=== PATIENT | female | born 1935 | race Caucasian/White ===

== ENCOUNTER → 2017-09-17 | Outpatient (CLI) | payer BC | END | disposition home or self-care (01) | LOC: KCIC US 12:44 | DX: I65.23 Occlusion and stenosis of bilateral carotid arteries (principal) | CPT/HCPCS: 93880 ==

== ENCOUNTER → 2017-10-22 | Outpatient (CLI) | payer BC | END | disposition home or self-care (01) | LOC: KCIC US 10:14 | DX: N18.3 Chronic kidney disease, stage 3 (moderate) (principal); N13.39 Other hydronephrosis | CPT/HCPCS: 76770 ==

== ENCOUNTER → 2018-01-29 | Outpatient (CLI) | payer BC | END | disposition home or self-care (01) | LOC: KCIC 10:54 | DX: R06.02 Shortness of breath (principal); N18.3 Chronic kidney disease, stage 3 (moderate) | CPT/HCPCS: 71046 ==

== ENCOUNTER → 2018-03-17 | Outpatient (CLI) | payer BC ==
--- NOTE | 2018-03-17 12:53 | KCIC ---
EXAM: Dual energy x-ray absorptiometry (DEXA). HISTORY: Postmenopausal female presents for osteoporosis screening. COMPARISON: None. TECHNIQUE: Dual energy x-ray absorptiometry of the lumbar spine and left hip was performed. Calculation of bone mineral density based on standard deviations above or below the expected young adult normal value (T-score) was completed. FINDINGS: The average bone mineral density in the 1st through 4th lumbar vertebrae is 1.023 g/cmxcm, corresponding with a T-score of -0.2. The average total bone mineral density in the left hip is 0.752 g/cmxcm, corresponding with a T-score of -1.6. IMPRESSION: 1. Osteopenia measured at the left hip. 2. Normal bone mineral density measured at the lumbar spine. Note: Definitions established by the World Health Organization: 1. Normal: T-score is -1.0 or above. 2. Osteopenia: T-score is between -1.0 and -2.5 . 3. Osteoporosis: T-score is -2.5 or below. Electronically signed by: Christy Damon MD (03/17/2018 12:50 PM) [place] [id number]
== END | disposition home or self-care (01) ==
LOC: KCIC DEXA 09:52
PROVIDERS: ATTEND Family Medicine
DX: Z13.820 Encounter for screening for osteoporosis (principal); M85.88 Other specified disorders of bone density and structure, other site; N18.3 Chronic kidney disease, stage 3 (moderate); R29.890 Loss of height
CPT/HCPCS: 77080

== ENCOUNTER → 2018-03-17 | Outpatient (CLI) | payer BC ==
--- NOTE | 2018-03-17 15:53 | CARD ---
MR#: [id number] Date of Study: 03/17/2018 Ordering Physician: VISH NAPIER, Referring Physician: VISH NAPIER, Tech: Eve Leigh ISR[place] APPROVED REPORT EXAM: Two-dimensional and M-mode echocardiogram with Doppler and color Doppler. Other Information Quality : Good INDICATION Dyspnea 2D DIMENSIONS RVDd2.8 (2.9-3.5cm)Left Atrium(2D)3.7 (1.6-4.0cm) IVSd1.1 (0.7-1.1cm)Aortic Root(2D)3.4 (2.0-3.7cm) LVDd4.7 (3.9-5.9cm)LVOT Diameter2.2 (1.8-2.4cm) PWd1.1 (0.7-1.1cm)LVDs3.1 (2.5-4.0cm) FS (%) 30.0 %SV62.9 ml LVEF(%)60.0 (>50%) Aortic Valve AoV Peak Que.114.8cm/sAoV VTI24.5cm AO Peak GR.5.3mmHgLVOT VTI 21.57cm AO Mean GR.4mmHgAVA (VTI)3.45cm2 Mitral Valve MV E Mbchlusg08.0cm/sMV DECEL [id number] MV A Qxtozinh951.0cm/sE/A Ratio0.6 TDI Lateral E' P. V9.05cm/sMedial E' P. V6.11cm/s E/Lateral E'8.2E/Medial E'12.1 Tricuspid Valve TR P. Cefwiydz407wq/sRAP [id number] TR Peak Gr.53dvRkBRRH41uuTb Pulmonary Vein S1 Abzymjuf23.4cm/sS2 Tikhhvnj70.80cm/s D2 Bvoizuoo88.8cm/s LEFT VENTRICLE The left ventricle is normal size. There is normal left ventricular wall thickness. The left ventricu lar systolic function is normal and the ejection fraction is within normal range. The Ejection Fracti on is 55-60%. There is normal LV segmental wall motion. Transmitral Doppler flow pattern is Grade I-a bnormal relaxation pattern. RIGHT VENTRICLE The right ventricle is normal size. The right ventricular systolic function is normal. ATRIA The left atrium size is normal. The right atrium size is normal. The interatrial septum is intact wit h no evidence for an atrial septal defect or patent foramen ovale as noted on 2-D or Doppler imaging. AORTIC VALVE The aortic valve is calcified but opens well. Doppler and Color Flow revealed no significant aortic r egurgitation. There is no significant aortic valvular stenosis. MITRAL VALVE The mitral valve is calcified but opens well. There is no evidence of mitral valve prolapse. There is no mitral valve stenosis. Doppler and Color-flow revealed trace mitral regurgitation. TRICUSPID VALVE The tricuspid valve is normal in structure and function. Doppler and Color Flow revealed trace to mil d tricuspid regurgitation. The PA pressure was estimated at 28 mmHg. There is no tricuspid valve sten osis. PULMONIC VALVE The pulmonic valve is not well visualized. Doppler and Color Flow revealed no pulmonic valvular regur gitation. There is no pulmonic valvular stenosis. GREAT VESSELS The aortic root is normal in size. The ascending aorta is mildly dilated at 3.4 cm. The IVC is normal in size and collapses >50% with inspiration. PERICARDIAL EFFUSION There is no evidence of significant pericardial effusion. Critical Notification Critical Value: No <Conclusion> The left ventricular systolic function is normal and the ejection fraction is within normal range. Th e Ejection Fraction is 55-60%. There is normal LV segmental wall motion. Signed by : Patel Maldonado, Electronically Approved : 03/17/2018 15:52:35
== END | disposition home or self-care (01) ==
LOC: ECHO 13:56
PROVIDERS: ATTEND Internal Medicine Cardiovascular Disease
DX: I36.1 Nonrheumatic tricuspid (valve) insufficiency (principal); N18.3 Chronic kidney disease, stage 3 (moderate)
CPT/HCPCS: 93306

== ENCOUNTER 2018-03-31 12:17 | Inpatient (IN) | payer BC ==
[~2018-03-31] VITALS: Ht 162.6 cm; Wt 77.2 kg
--- NOTE | 2018-03-31 12:22 | PHYS DOC ---
Adult General HPI HPI Patient is a 82 year old female brought in by emesis with mechanical fall she tripped while taking the trash out no loss of consciousness she has chronic neck pain no change there. She's been feeling well recently no recent illnesses no chest pain no syncope. She has a laceration to her for a tetanus is up-to- date. Review of Systems Review of Systems Constitutional: Denies fever or chills [] Eyes: Denies change in visual acuity, redness, or eye pain [] HENT: Denies nasal congestion or sore throat [] Musculoskeletal: Neurologic: Deniesfocal weakness or sensory changes [] Endocrine: Denies polyuria or polydipsia [] All other systems were reviewed and found to be within normal limits, except as documented in this note. Current Medications Current Medications Current Medications Medications (Trade) Dose Ordered Sig/Jasbir Start Time Stop Time Status Last Admin Dose Admin Lidocaine/ Epinephrine (LIDOCAINE 1%-EPI 1:100,000 Multi-Dose) 20 ml 1X ONCE 03/31/18 12:30 03/31/18 12:59 DC 03/31/18 13:11 20 ML Allergies Allergies Allergies Coded Allergies Type Severity Reaction Last Updated Verified No Known Drug Allergies 03/31/18 No Physical Exam Physical Exam Constitutional: Well developed, well nourished, no acute distress, non-toxic appearance. [] HENT: Normocephalic,3-4 cm laceration to the right forehead , jagged no fb. bilateral external ears normal, oropharynx moist, no oral exudates, nose normal. [] Eyes: PERRLA, EOMI, conjunctiva normal, no discharge. [] Neck: Normal range of motion, ttp is noted diffuse no focality supple, no stridor. Pulmonary: Normal respiratory effort no increased work of breathing no obvious chest wall trauma Abdomen: Bowel sounds normal, soft, no tenderness, no masses, no pulsatile masses. [] Skin: Warm, dry, no erythema, no rash. [] Extremities: No tenderness, no cyanosis, no clubbing, ROM intact, no edema. [] Neurologic: Alert and oriented X 3, normal motor function, normal sensory function, no focal deficits noted. [] Psychologic: Affect normal, judgement normal, mood normal. [] Current Patient Data Vital Signs Vital Signs Date Time Temp Pulse Resp B/P (MAP) Pulse Ox O2 Delivery O2 Flow Rate FiO2 9/10/18 13:45 88 18 95 03/31/18 12:17 97.8 139/84 (102) Room Air 97.8 Lab Values Laboratory Tests Test 03/31/18 13:17 White Blood Count 6.2 x10^3/uL (4.0-11.0) Red Blood Count 4.81 x10^6/uL (3.50-5.40) Hemoglobin 14.6 g/dL (12.0-15.5) Hematocrit 42.6 % (36.0-47.0) Mean Corpuscular Volume 89 fL (79-100) Mean Corpuscular Hemoglobin 30 pg (25-35) Mean Corpuscular Hemoglobin Concent 34 g/dL (31-37) Red Cell Distribution Width 13.4 % (11.5-14.5) Platelet Count 204 x10^3/uL (140-400) Neutrophils (%) (Auto) 62 % (31-73) Lymphocytes (%) (Auto) 27 % (24-48) Monocytes (%) (Auto) 9 % (0-9) Eosinophils (%) (Auto) 1 % (0-3) Basophils (%) (Auto) 1 % (0-3) Neutrophils # (Auto) 3.8 x10^3uL (1.8-7.7) Lymphocytes # (Auto) 1.6 x10^3/uL (1.0-4.8) Monocytes # (Auto) 0.6 x10^3/uL (0.0-1.1) Eosinophils # (Auto) 0.0 x10^3/uL (0.0-0.7) Basophils # (Auto) 0.1 x10^3/uL (0.0-0.2) Prothrombin Time 13.1 SEC (11.7-14.0) Prothrombin Time INR 1.0 (0.8-1.1) Sodium Level 137 mmol/L (136-145) Potassium Level 4.0 mmol/L (3.5-5.1) Chloride Level 105 mmol/L (98-107) Carbon Dioxide Level 26 mmol/L (21-32) Anion Gap 6 (6-14) Blood Urea Nitrogen 20 mg/dL (7-20) Creatinine 1.2 mg/dL (0.6-1.0) H Estimated GFR (Cockcroft-Gault) 42.8 BUN/Creatinine Ratio 17 (6-20) Glucose Level 109 mg/dL (70-99) H Calcium Level 9.4 mg/dL (8.5-10.1) Total Bilirubin 0.5 mg/dL (0.2-1.0) Aspartate Amino Transferase (AST) 22 U/L (15-37) Alanine Aminotransferase (ALT) 30 U/L (14-59) Alkaline Phosphatase 70 U/L (46-116) Total Protein 7.1 g/dL (6.4-8.2) Albumin 3.5 g/dL (3.4-5.0) Albumin/Globulin Ratio 1.0 (1.0-1.7) Laboratory Tests 03/31/18 13:17 Laboratory Tests 03/31/18 13:17 EKG EKG [] Radiology/Procedures Radiology/Procedures [] Impressions: CT CERVICAL SPINE INDICATION: FALL LAC TO R FOREHEAD NO PREV COMPARISON: None Available. Exposure: One or more of the following individualized dose reduction techniques were utilized for this examination: 1. Automated exposure control 2. Adjustment of the mA and/or kV according to patient size 3. Use of iterative reconstruction technique Technique: 2.5 mm contiguous axial images were obtained from the skull base through the cervicothoracic junction in both bone and soft tissue algorithm. Additional sagittal and coronal reconstructions were also performed. FINDINGS: Vertebral body height and alignment are maintained. Cervical lordosis is preserved. The lateral masses of C1 are aligned upon C2. No fractures identified. The bony canal is patent throughout. Moderate intervertebral disc height loss identified throughout the cervical spine most at C5-C6 vertebral levels. Bilateral facets are well aligned. Moderate facet degenerative changes. The lateral masses of C1 are aligned with C2 vertebra. The C2 dens appears intact The paraspinous soft tissues are unremarkable. Lung apices are clear. IMPRESSION: 1. Mild subarachnoid bleed right temporal lobe. 2. No acute fracture of the cervical spine. Correlate clinically. 3. Moderate degenerative changes cervical spine. These results were called to Dr. Gandara and verified by read back at the time of dictation. Electronically signed by: Romario Olmos MD (03/31/2018 1:10 PM) [id number] Course & Med Decision Making Course & Med Decision Making Pertinent Labs and Imaging studies reviewed. (See chart for details) []Laceration repair: Verbal consent was obtained area was prepped and draped usual sterile fashion and irrigated profusely no foreign body was seen lidocaine with epi for anesthesia was closed with 6-0 nylon sutures with excellent skin aproximation patient tolerated well. 4 cm. NOTED SMALL SAH. PT GCS 15 ALERT NO ANTICOAGULATION D/W RAINER N'SURG RECOMMENDS THEY WILL LOOK AT SCANS BUT ADMIT FOR OBS AND REPEAT CT SCAN. Dragon Disclaimer Dragon Disclaimer This electronic medical record was generated, in whole or in part, using a voice recognition dictation system. Departure Departure Impression: Primary Impression: Forehead laceration Additional Impression: Subarachnoid hemorrhage Disposition: ADMITTED INPATIENT Admitting Physician: Tanner King Condition: STABLE Referrals: SHIRLEY ROSALES MD (PCP) Problem Qualifiers LUISANA HERNANDEZ MD Mar 31, 2018 12:22
[2018-03-31] MEDS ORDERED: LIDOCAINE 1%/EPI 1:100,000 20 ML VIAL. INJ ONE (12:30)
--- NOTE | 2018-03-31 13:13 | RAD ---
Examination: CT head and cervical spine without contrast HISTORY: History of laceration to the forehead, fall COMPARISON: None available CT HEAD INDICATION: FALL LAC TO R FOREHEAD NO PREV COMPARISON: None Available. TECHNIQUE: 5 mm contiguous axial images were obtained from the skull base to the vertex in both bone and soft tissue algorithm. FINDINGS: There is no evidence of midline shift. There is linear hyperdensity identified in the right temporal lobe best visualized on series 2 image #13 likely subarachnoid bleed in the right temporal lobe. Mild bilateral periventricular white matter hypodensities likely chronic small vessel ischemic disease The visualized lateral ventricles, third ventricle, fourth ventricle appropriate for age. The basal cisterns are uneffaced There is laceration identified in the right forehead region laterally. CT CERVICAL SPINE INDICATION: FALL LAC TO R FOREHEAD NO PREV COMPARISON: None Available. Exposure: One or more of the following individualized dose reduction techniques were utilized for this examination: 1. Automated exposure control 2. Adjustment of the mA and/or kV according to patient size 3. Use of iterative reconstruction technique Technique: 2.5 mm contiguous axial images were obtained from the skull base through the cervicothoracic junction in both bone and soft tissue algorithm. Additional sagittal and coronal reconstructions were also performed. FINDINGS: Vertebral body height and alignment are maintained. Cervical lordosis is preserved. The lateral masses of C1 are aligned upon C2. No fractures identified. The bony canal is patent throughout. Moderate intervertebral disc height loss identified throughout the cervical spine most at C5-C6 vertebral levels. Bilateral facets are well aligned. Moderate facet degenerative changes. The lateral masses of C1 are aligned with C2 vertebra. The C2 dens appears intact The paraspinous soft tissues are unremarkable. Lung apices are clear. IMPRESSION: 1. Mild subarachnoid bleed right temporal lobe. 2. No acute fracture of the cervical spine. Correlate clinically. 3. Moderate degenerative changes cervical spine. These results were called to Dr. Gandara and verified by read back at the time of dictation. Electronically signed by: Romario Olmos MD (03/31/2018 1:10 PM) [id number]
[2018-03-31 13:31] LABS: BASO # 0.1 x10^3/uL (0.0-0.2); BASO % 1 % (0-3); EOS % 1 % (0-3); HEMATOCRIT 42.6 % (36.0-47.0); HEMOGLOBIN 14.6 g/dL (12.0-15.5); LYMPH # 1.6 x10^3/uL (1.0-4.8); LYMPH % 27 % (24-48); MEAN CORPUSCULAR HEMOGLOBIN 30 pg (25-35); MEAN CORPUSCULAR HGB CONC 34 g/dL (31-37); MEAN CORPUSCULAR VOLUME 89 fL (79-100); MONO # 0.6 x10^3/uL (0.0-1.1); MONO % 9 % (0-9); NEUT # 3.8 x10^3uL (1.8-7.7); NEUT % 62 % (31-73); PLATELET COUNT 204 x10^3/uL (140-400); RED BLOOD COUNT 4.81 x10^6/uL (3.50-5.40); RED CELL DISTRIBUTION WIDTH 13.4 % (11.5-14.5); WHITE BLOOD COUNT 6.2 x10^3/uL (4.0-11.0)
[2018-03-31 13:40] LABS: CALCIUM 9.4 mg/dL (8.5-10.1); CREATININE 1.2 mg/dL (0.6-1.0); GFR 42.8; PROTHROMBIN TIME PATIENT 13.1 SEC (11.7-14.0)
[2018-03-31 13:45] LABS: ALBUMIN 3.5 g/dL (3.4-5.0); TOTAL BILIRUBIN 0.5 mg/dL (0.2-1.0); TOTAL PROTEIN 7.1 g/dL (6.4-8.2)
[2018-03-31] MEDS ORDERED: ACETAMINOPHEN 500 MG TABLET PO ONE ×2 (16:00→23:00)
[2018-03-31 17:00] VITALS: BP 165/75
--- NOTE | 2018-03-31 18:25 | HP ---
ADMIT DATE: 03/31/2018 CHIEF COMPLAINT: Fall with head trauma. HISTORY OF PRESENT ILLNESS: The patient is a pleasant 82-year-old female who was taking her trash out and fell. She suffered some facial trauma with lacerations to the right forehead. We did a CAT scan. She has got a small arachnoid bleed. She has associated pain. I have discussed the case with the ER physician. We are going to admit the patient and consult Neurosurgery. Neurosurgery states that they would like to do a repeat CAT scan in the morning. PAST MEDICAL HISTORY: Benign. ALLERGIES: None. FAMILY HISTORY: Hypertension. SOCIAL HISTORY: I believe she lives alone. No drinking, smoking or drugs. She is retired. MEDICATIONS: Reviewed, please refer to the MRAD. REVIEW OF SYSTEMS: GENERAL: No history of weight change, weakness or fevers. SKIN: No bruising, hair changes or rashes. EYES: No blurred, double or loss of vision. NOSE AND THROAT: No history of nosebleeds, hoarseness or sore throat. HEART: No history of palpitations, chest pain or shortness of breath on exertion. LUNGS: Denies cough, hemoptysis, wheezing or shortness of breath. GASTROINTESTINAL: Denies changes in appetite, nausea, vomiting, diarrhea or constipation. GENITOURINARY: No history of frequency, urgency, hesitancy or nocturia. NEUROLOGIC: Denies history of numbness, tingling, tremor or weakness. PSYCHIATRIC: No history of panic, anxiety or depression. ENDOCRINE: No history of heat or cold intolerance, polyuria or polydipsia. EXTREMITIES: Denies muscle weakness, joint pain, pain on walking or stiffness. PHYSICAL EXAMINATION: VITAL SIGNS: Temperature 98, pulse 80, respirations 14, blood pressure 144/90. GENERAL: She is alert, cooperative, talking on phone. HEART: Normal S1, S2. LUNGS: Clear. ABDOMEN: Soft. EXTREMITIES: No edema. SKIN: No rash. ENDOCRINE: No thyromegaly. LYMPHATICS: No cervical nodes. HEMATOPOIETIC: No bruising. HEENT: There is a right facial trauma, please see the pictures. LABORATORY DATA: Hematology is normal. Electrolytes are normal. ASSESSMENT AND PLAN: Fall with a small subarachnoid hemorrhage. The patient will be admitted. We will consult Neurosurgery. We will repeat a scan in the morning. PT, OT, home meds, cardiac monitoring. AUDREY MILLER DO DR: Keisha JOB#: [id number] / [id number]
[2018-03-31 19:10] VITALS: BP 159/79
[2018-03-31] MEDS ORDERED: PRIM50TA PO (22:46)
[2018-03-31] MEDS ORDERED: CALC600T4 PO (22:46)
[2018-03-31] MEDS ORDERED: HYDR-2869 PO (22:46)
[2018-03-31] MEDS ORDERED: ACET500T33 PO (22:46)
[2018-03-31] MEDS ORDERED: CLON0.25 PO (22:46)
[2018-03-31] MEDS ORDERED: LOSA100T7 PO (22:46)
[2018-03-31] MEDS ORDERED: ASPI325T8 PO (22:46)
[2018-03-31] MEDS ORDERED: PRAV80TA2 PO (22:46)
[2018-03-31] MEDS ORDERED: VERA240C2 PO (22:46)
[2018-03-31] MEDS ORDERED: LEVO150T5 PO (22:46)
[2018-03-31] MEDS ORDERED: SERT50TA8 PO (22:46)
[2018-03-31] MEDS ORDERED: ACETAMINOPHEN 500 MG TABLET PO SCH (23:00)
[2018-03-31] MEDS ORDERED: PRIMIDONE 50 MG TABLET PO SCH (23:00)
[2018-03-31 23:15] VITALS: BP 136/85
[2018-04-01 03:15] VITALS: BP 144/68
[2018-04-01 07:00] VITALS: BP_SYST 164; BP_SYST 167; BP_DIAS 110; BP_DIAS 82
[2018-04-01] MEDS ORDERED: ACETAMINOPHEN 500 MG TABLET PO PRN (09:00)
[2018-04-01] MEDS ORDERED: SERTRALINE 50 MG TABLET. PO SCH (09:00)
[2018-04-01] MEDS ORDERED: ASPIRIN 325 MG TABLET PO SCH (09:00)
[2018-04-01] MEDS ORDERED: ONDANSETRON PF 4 MG/2 ML VIAL. IV PRN (09:00)
[2018-04-01] MEDS ORDERED: ENALAPRILAT 1.25 MG/ML VIAL. IVP PRN (09:00)
[2018-04-01] MEDS ORDERED: ACETAMINOPHEN/CODEINE 300/30MG TABLET. PO PRN (09:00)
[2018-04-01] MEDS ORDERED: ONDANSETRON ODT 4 MG TAB.RAPDIS. PO PRN (09:00)
--- NOTE | 2018-04-01 09:13 | RAD ---
RS Compliance Statement: One or more of the following individualized dose reduction techniques were utilized for this examination: 1. Automated exposure control 2. Adjustment of the mA and/or kV according to patient size 3. Use of iterative reconstruction technique CT head without contrast 04/01/2018 5:00 AM INDICATION: Subarachnoid hemorrhage COMPARISON: CT head March 31, 2018 TECHNIQUE: Multiple axial CT images of the head were obtained from skull base through the vertex without intravenous contrast. FINDINGS: Head: Ventricles, sulci and basal cisterns are within normal limits. There is no hydrocephalus. Brooks-white matter differentiation is normal. Previously seen high attenuation within the sulci of the right temporal lobe appears to have improved suggesting redistribution of subarachnoid blood products. No new areas of hemorrhage are identified. There is no mass, mass effect or midline shift. Posterior fossa is normal in appearance. There is suggestion of a 13 mm right frontal vertex extra-axial calcified mass suggestive of a meningioma. Visualized portions of the orbits are normal with exception of bilateral lens replacement. Paranasal sinuses are well aerated. Mastoid air cells are well aerated. Scalp and calvaria are normal. IMPRESSION: 1. Interval resolution or redistribution of right temporal subarachnoid hemorrhage. No new areas of hemorrhage are identified. 2. Suspect a 13 mm extra-axial calcified mass at the right frontal vertex suggestive of a meningioma. Electronically signed by: Tabatha Gresham MD (04/01/2018 9:10 AM) [facility]
[2018-04-01] MEDS ORDERED: clonazePAM 0.5 MG TABLET PO SCH (09:30)
[2018-04-01] MEDS ORDERED: LOSARTAN POTASSIUM 50 MG TABLET. PO SCH (10:00)
[2018-04-01] MEDS ORDERED: LEVOTHYROXINE 150 MCG TABLET PO SCH (10:30)
[2018-04-01 11:00] VITALS: BP 167/82
--- NOTE | 2018-04-01 11:09 | PDOC2 ---
CARDIAC CONSULT DATE OF CONSULT Date of Consult DATE: 04/01/18 TIME: 10:57 REASON FOR CONSULT Reason for Consult: SAH, outpt scheduled follow up today in office REFERRING PHYSICIAN Referring Physician: Christine SOURCE Source: Chart review, Patient HISTORY OF PRESENT ILLNESS HISTORY OF PRESENT ILLNESS This is a pleasant 82 yo female admitted for fall. She fell as she tripped on a little elevation on the concrete floor when taking out the trash. She obtained a right orbital laceration and left knee abrasion. she does have a bruis to lower anterior part of her ankle which she obtain after running into a construction material the other days unrelated to her fall.. Denies any dizziness, palpitations during that time. No frequent falls. She has a scheduled follow up in our office this week. She is significant for HTN and HLP but no past hx of arrhythmias. Upon further imaging she was noted with small SAH which is no absent compared to yesterdays imaging and has been cleared by neurosurgery to go home. There was no lost of consciousness or significant GOSS. No visual or auditory disturbances. PAST MEDICAL HISTORY Cardiovascular: HTN, Hyperlipidemia, Other (carotid artery disease) Psych: Anxiety, Depression Musculoskeletal: Osteoarthritis, Other (cervical stenosis) Renal/: Chronic renal insuff Endocrine: Hypothyroidism, Osteopenia PAST SURGICAL HISTORY Past Surgical History: Cholecystectomy, Hernia Repair, Other (eye implants, gastric surgery) FAMILY HISTORY Family History: Heart Disease (mother), Stroke (father) SOCIAL HISTORY Smoke: Quit ALCOHOL: none Drugs: None Lives: Alone CURRENT MEDICATIONS CURRENT MEDICATIONS Current Medications Medications (Trade) Dose Ordered Sig/Jasbir Route PRN Reason Start Time Stop Time Status Last Admin Dose Admin Lidocaine/ Epinephrine (LIDOCAINE 1%-EPI 1:100,000 Multi-Dose) 20 ml 1X ONCE INJ 03/31/18 12:30 03/31/18 12:59 DC 03/31/18 13:11 Acetaminophen (Tylenol) 1,000 mg 1X ONCE PO 03/31/18 16:00 03/31/18 16:01 DC 03/31/18 16:12 Acetaminophen (Tylenol) 1,000 mg 1X ONCE PO 03/31/18 23:00 03/31/18 23:01 DC 03/31/18 23:40 Sertraline HCl (Zoloft) 50 mg DAILY PO 04/01/18 09:00 04/01/18 09:46 Clonazepam (KlonoPIN) 0.25 mg BID PO 04/01/18 09:30 04/01/18 09:45 Hydralazine HCl (Apresoline) 50 mg BID PO 04/01/18 10:00 04/01/18 09:51 Levothyroxine Sodium (Synthroid) 150 mcg DAILY07 PO 04/01/18 10:30 04/01/18 09:46 Losartan Potassium (Cozaar) 100 mg DAILY PO 04/01/18 10:00 04/01/18 09:46 ALLERGIES ALLERGIES: Coded Allergies: No Known Drug Allergies (Unverified , 03/31/18) ROS Review of System 14 point ROS evaluated with pertinent positives noted per HPI PHYSICAL EXAM General: Alert, Oriented X3, Cooperative, No acute distress HEENT: Atraumatic, Mucous membr. moist/pink Lungs: Clear to auscultation, Normal air movement Heart: Regular rate (SR no signifncant ectopies), Normal S1, Normal S2, No murmurs Abdomen: Soft, No tenderness Extremities: No cyanosis, No edema Skin: No breakdown, Other (left ankle bruise and knee abrasions. right orbital bruis and laceration) Neuro: Normal speech, Sensation intact Psych/Mental Status: Mental status NL, Mood NL MUSCULOSKELETAL: Osteoarthritic changes both hands VITALS VITALS Vital Signs Date Time Temp Pulse Resp B/P (MAP) Pulse Ox O2 Delivery O2 Flow Rate FiO2 04/01/18 09:51 67 164/82 04/01/18 07:00 96.4 20 94 Room Air 96.4 LABS Lab: Laboratory Tests Test 03/31/18 13:17 White Blood Count 6.2 x10^3/uL (4.0-11.0) Red Blood Count 4.81 x10^6/uL (3.50-5.40) Hemoglobin 14.6 g/dL (12.0-15.5) Hematocrit 42.6 % (36.0-47.0) Mean Corpuscular Volume 89 fL (79-100) Mean Corpuscular Hemoglobin 30 pg (25-35) Mean Corpuscular Hemoglobin Concent 34 g/dL (31-37) Red Cell Distribution Width 13.4 % (11.5-14.5) Platelet Count 204 x10^3/uL (140-400) Neutrophils (%) (Auto) 62 % (31-73) Lymphocytes (%) (Auto) 27 % (24-48) Monocytes (%) (Auto) 9 % (0-9) Eosinophils (%) (Auto) 1 % (0-3) Basophils (%) (Auto) 1 % (0-3) Neutrophils # (Auto) 3.8 x10^3uL (1.8-7.7) Lymphocytes # (Auto) 1.6 x10^3/uL (1.0-4.8) Monocytes # (Auto) 0.6 x10^3/uL (0.0-1.1) Eosinophils # (Auto) 0.0 x10^3/uL (0.0-0.7) Basophils # (Auto) 0.1 x10^3/uL (0.0-0.2) Prothrombin Time 13.1 SEC (11.7-14.0) Prothromb Time International Ratio 1.0 (0.8-1.1) Sodium Level 137 mmol/L (136-145) Potassium Level 4.0 mmol/L (3.5-5.1) Chloride Level 105 mmol/L (98-107) Carbon Dioxide Level 26 mmol/L (21-32) Anion Gap 6 (6-14) Blood Urea Nitrogen 20 mg/dL (7-20) Creatinine 1.2 mg/dL (0.6-1.0) Estimated GFR (Cockcroft-Gault) 42.8 BUN/Creatinine Ratio 17 (6-20) Glucose Level 109 mg/dL (70-99) Calcium Level 9.4 mg/dL (8.5-10.1) Total Bilirubin 0.5 mg/dL (0.2-1.0) Aspartate Amino Transf (AST/SGOT) 22 U/L (15-37) Alanine Aminotransferase (ALT/SGPT) 30 U/L (14-59) Alkaline Phosphatase 70 U/L (46-116) Total Protein 7.1 g/dL (6.4-8.2) Albumin 3.5 g/dL (3.4-5.0) Albumin/Globulin Ratio 1.0 (1.0-1.7) ECHOCARDIOGRAM ECHOCARDIOGRAM <Conclusion> The left ventricular systolic function is normal and the ejection fraction is within normal range. The Ejection Fraction is 55-60%. There is normal LV segmental wall motion. DATE: 03/17/18 0563 ASSESSMENT/PLAN ASSESSMENT/PLAN 1. Mechanical fall with right temporal SAH: has resolved per imaging. No symptoms.of concussion so far 2. HTN 3. HLP 4. Hypothyroidism 5. Moderate Carotid artery disease Recommendations. 1. Continue antiHTN meds including statin. Defer start of ASA per neurosurgery 2. Check for orthostasis. 3. Follow up in 4 weeks with cardiology 4. Follow up with outpt PCP in 1-2 weeks to reeval for any post fall concussion. Defer to PCP TAURUS SOSA APRN Apr 01, 2018 11:09
--- NOTE | 2018-04-01 11:24 | PDOC3 ---
Discharge Summary Visit Information Date of Admission: Mar 31, 2018 Date of Discharge: Apr 01, 2018 Admitting Diagnosis Comment: SAH hemorrhage Right supraorbital laceration status post sutures at ER Hypertension accelerated POA dyslipidemia on statin Final Diagnosis Problems Medical Problems: (1) Forehead laceration Status: Acute Brief Hospital Course Allergies Allergies Coded Allergies Type Severity Reaction Last Updated Verified No Known Drug Allergies 03/31/18 No Vital Signs Vital Signs Date Time Temp Pulse Resp B/P (MAP) Pulse Ox O2 Delivery O2 Flow Rate FiO2 04/01/18 09:51 67 164/82 04/01/18 07:00 96.4 20 94 Room Air 96.4 Lab Results Laboratory Tests Test 03/31/18 13:17 White Blood Count 6.2 x10^3/uL (4.0-11.0) Red Blood Count 4.81 x10^6/uL (3.50-5.40) Hemoglobin 14.6 g/dL (12.0-15.5) Hematocrit 42.6 % (36.0-47.0) Mean Corpuscular Volume 89 fL (79-100) Mean Corpuscular Hemoglobin 30 pg (25-35) Mean Corpuscular Hemoglobin Concent 34 g/dL (31-37) Red Cell Distribution Width 13.4 % (11.5-14.5) Platelet Count 204 x10^3/uL (140-400) Neutrophils (%) (Auto) 62 % (31-73) Lymphocytes (%) (Auto) 27 % (24-48) Monocytes (%) (Auto) 9 % (0-9) Eosinophils (%) (Auto) 1 % (0-3) Basophils (%) (Auto) 1 % (0-3) Neutrophils # (Auto) 3.8 x10^3uL (1.8-7.7) Lymphocytes # (Auto) 1.6 x10^3/uL (1.0-4.8) Monocytes # (Auto) 0.6 x10^3/uL (0.0-1.1) Eosinophils # (Auto) 0.0 x10^3/uL (0.0-0.7) Basophils # (Auto) 0.1 x10^3/uL (0.0-0.2) Prothrombin Time 13.1 SEC (11.7-14.0) Prothromb Time International Ratio 1.0 (0.8-1.1) Sodium Level 137 mmol/L (136-145) Potassium Level 4.0 mmol/L (3.5-5.1) Chloride Level 105 mmol/L (98-107) Carbon Dioxide Level 26 mmol/L (21-32) Anion Gap 6 (6-14) Blood Urea Nitrogen 20 mg/dL (7-20) Creatinine 1.2 mg/dL (0.6-1.0) Estimated GFR (Cockcroft-Gault) 42.8 BUN/Creatinine Ratio 17 (6-20) Glucose Level 109 mg/dL (70-99) Calcium Level 9.4 mg/dL (8.5-10.1) Total Bilirubin 0.5 mg/dL (0.2-1.0) Aspartate Amino Transf (AST/SGOT) 22 U/L (15-37) Alanine Aminotransferase (ALT/SGPT) 30 U/L (14-59) Alkaline Phosphatase 70 U/L (46-116) Total Protein 7.1 g/dL (6.4-8.2) Albumin 3.5 g/dL (3.4-5.0) Albumin/Globulin Ratio 1.0 (1.0-1.7) Laboratory Tests Test 03/31/18 13:17 White Blood Count 6.2 x10^3/uL (4.0-11.0) Red Blood Count 4.81 x10^6/uL (3.50-5.40) Hemoglobin 14.6 g/dL (12.0-15.5) Hematocrit 42.6 % (36.0-47.0) Mean Corpuscular Volume 89 fL (79-100) Mean Corpuscular Hemoglobin 30 pg (25-35) Mean Corpuscular Hemoglobin Concent 34 g/dL (31-37) Red Cell Distribution Width 13.4 % (11.5-14.5) Platelet Count 204 x10^3/uL (140-400) Neutrophils (%) (Auto) 62 % (31-73) Lymphocytes (%) (Auto) 27 % (24-48) Monocytes (%) (Auto) 9 % (0-9) Eosinophils (%) (Auto) 1 % (0-3) Basophils (%) (Auto) 1 % (0-3) Neutrophils # (Auto) 3.8 x10^3uL (1.8-7.7) Lymphocytes # (Auto) 1.6 x10^3/uL (1.0-4.8) Monocytes # (Auto) 0.6 x10^3/uL (0.0-1.1) Eosinophils # (Auto) 0.0 x10^3/uL (0.0-0.7) Basophils # (Auto) 0.1 x10^3/uL (0.0-0.2) Prothrombin Time 13.1 SEC (11.7-14.0) Prothromb Time International Ratio 1.0 (0.8-1.1) Sodium Level 137 mmol/L (136-145) Potassium Level 4.0 mmol/L (3.5-5.1) Chloride Level 105 mmol/L (98-107) Carbon Dioxide Level 26 mmol/L (21-32) Anion Gap 6 (6-14) Blood Urea Nitrogen 20 mg/dL (7-20) Creatinine 1.2 mg/dL (0.6-1.0) Estimated GFR (Cockcroft-Gault) 42.8 BUN/Creatinine Ratio 17 (6-20) Glucose Level 109 mg/dL (70-99) Calcium Level 9.4 mg/dL (8.5-10.1) Total Bilirubin 0.5 mg/dL (0.2-1.0) Aspartate Amino Transf (AST/SGOT) 22 U/L (15-37) Alanine Aminotransferase (ALT/SGPT) 30 U/L (14-59) Alkaline Phosphatase 70 U/L (46-116) Total Protein 7.1 g/dL (6.4-8.2) Albumin 3.5 g/dL (3.4-5.0) Albumin/Globulin Ratio 1.0 (1.0-1.7) Brief Hospital Course Ms. Short is a 82 old female who lives at home, tripped on something and fell on her head, did not lose consciousness. Unfortunately she sustained a small right supraorbital laceration that needed suturing at the ER. CT head showed a mild small SAH hemorrhage. Neuro exam is nonfocal, she denies any headaches. Blood pressure a little bit on the high side of admission 160s, she is on antihypertensive meds, known to Dr. Hough and actually just had a recent echocardiogram. She has been seen by cardiology and advised follow-up in 4 weeks. Interval CAT scan shows resolution of the subarachnoid hemorrhage. No PT needs. Clinically stable. Okay for home. I did recommend holding aspirin for 7 days and resuming after if cont to do well at home . She has a follow-up 4 weeks with cardiology No home meds or no new meds started by us. Discharge Information Condition at Discharge: Improved, Stable Follow Up: Weeks (4 weeks cards) Disposition/Orders: D/C to Home Scheduled Acetaminophen (Tylenol Extra Strength) 500 Mg Tablet, 1,000 MG PO QHS, (Reported ) Entered as Reported by: NEW DORMAN on 03/31/182245 Last Taken: 2 tablets on Unknown Date & Time Last Action: Continued on 05/08 by NEW DORMAN Aspirin (Aspirin) 325 Mg Tablet, 1 TAB PO DAILY, #30 Ref 5 (Reported) Entered as Reported by: NEW DORMAN on 03/31/182245 Last Action: Continued on 03/31/182253 by NEW DORMAN Calcium Carbonate (Calcium) 600 Mg Tablet, 600 MG PO QHS, (Reported) Entered as Reported by: NEW DORMAN on 03/31/182245 Last Action: Converted on 04/01/18855 by DEMETRIS PALOMINO Clonazepam (Clonazepam) 0.25 Mg Tab.rapdis, 0.25 MG PO BID, (Reported) Entered as Reported by: NEW DORMAN on 03/31/182245 Last Action: Converted on 04/01/18855 by DEMETRIS PALOMINO Hydralazine Hcl (Hydralazine Hcl) 50 Mg Tablet, 1 TAB PO BID, #180 Ref 3 ( Reported) Entered as Reported by: NEW DORMAN on 03/31/182245 Last Action: Converted on 04/01/18855 by DEMETRIS PALOMINO Levothyroxine Sodium (Levothyroxine Sodium) 150 Mcg Tablet, 1 TAB PO DAILY, #30 Ref 5 (Reported) Entered as Reported by: NEW DORMAN on 03/31/182245 Last Action: Converted on 04/01/18855 by DEMETRIS PALOMINO Losartan Potassium (Losartan Potassium) 100 Mg Tablet, 100 MG PO DAILY, ( Reported) Entered as Reported by: NEW DORMAN on 03/31/182245 Last Taken: UNKNOWN on Unknown Date & Time Last Action: Converted on 04/01 by DEMETRIS PALOMINO Pravastatin Sodium (Pravastatin Sodium) 80 Mg Tablet, 1 TAB PO QHS, #90 Ref 1 ( Reported) Entered as Reported by: NEW DORMAN on 03/31/182245 Last Action: Converted on 04/01/18855 by DEMETRIS PALOMINO Primidone (Primidone) 50 Mg Tablet, 50 MG PO QHS, (Reported) Entered as Reported by: NEW DORMAN on 03/31/182245 Last Action: Converted on 03/31/182253 by NEW DORMAN Sertraline Hcl (Sertraline Hcl) 50 Mg Tablet, 50 MG PO DAILY for ANTI-DEPRESSANT , Ref 0 (Reported) Entered as Reported by: NEW DORMAN on 03/31/182245 Last Action: Continued on 03/31/182253 by NEW DORMAN Verapamil Hcl (Verapamil Er) 240 Mg Cap24h.pel, 360 MG PO QHS, (Reported) Entered as Reported by: NEW DORMAN on 03/31/182245 Last Action: Converted on 04/01/18855 by DEMETRIS PALOMINO Verapamil Hcl (Verapamil Er) 240 Mg Cap24h.pel, 360 MG PO QHS, (Reported) Entered as Reported by: NEW DORMAN on 03/31/182245 Last Taken: UNKNOWN on Unknown Date & Time Last Action: HELD on 04/01/18855 by DEMETRIS HERNANDEZ MD Apr 01, 2018 11:24
[2018-04-01 13:15] VITALS: BP_SYST 144; BP_SYST 172; BP_SYST 173; BP_DIAS 80; BP_DIAS 87; BP_DIAS 92
[2018-04-01 13:19] VITALS: BP_SYST 172; BP_SYST 173; BP_DIAS 80; BP_DIAS 92
[2018-04-01 13:20] VITALS: BP 144/87
--- NOTE | 2018-04-01 20:06 | CONS ---
DATE OF CONSULTATION: REASON FOR CONSULTATION: Fall with subarachnoid hemorrhage. HISTORY OF PRESENT ILLNESS: The patient is a pleasant 82-year-old woman who was taking out a trash and fell. She said she struck her right shoulder and the right side of her head. She said that she did not lose consciousness. When seen in the Emergency Room, she described a right-sided head pain. Otherwise, she was alert and oriented and on a CT scan had focal amount of blood seen in subarachnoid space and over the right temporal region, and she was admitted for further evaluation. PAST MEDICAL HISTORY: Unremarkable. ALLERGIES: None. FAMILY HISTORY: Hypertension. SOCIAL HISTORY: Lives alone. No drinking alcohol or smoking cigarettes. She is retired. MEDICATIONS: Reviewed. Please see the MRAD. They are noncontributory. REVIEW OF SYSTEMS: 12 points was performed and was negative other than outlined above. PHYSICAL EXAMINATION: GENERAL: She is pleasant, alert and cooperative, oriented with normal recent and remote memory, normal speech. HEENT: Normocephalic. There is a small ecchymosis over her right supraorbital region and an abrasion in this location. NEUROLOGIC: She was oriented times 3. Speech was clear. Pupils were equal and reactive to light with normal extraocular motor function. Facial motor and facial sensory examination was normal. Her lower cranial nerves were intact including hearing to finger rub. Shoulder shrug normal. Tongue everted in the midline. On motor testing, her strength was 5/5 in upper and lower extremities bilaterally. On sensory examination, she was intact to light touch in the upper and lower extremities bilaterally. She was hyporeflexic. There was full range of motion of upper and lower extremities bilaterally. LABORATORY DATA: I reviewed a CT scan of the head. On that study, there is a very small focal linear subarachnoid hemorrhage in sulcus of the right superior temporal lobe. ASSESSMENT: Focal subarachnoid hemorrhage related to fall. RECOMMENDATIONS: I would keep her overnight and observe her and repeat a CT scan in the morning. I appreciate asking me to see her. NATO BARDALES MD DR: FAWN/dia JOB#: [id number] / [id number] [place]
[2018-04-01] MEDS ORDERED: CALCIUM CARBONATE 500 MG TABLET PO SCH (21:00)
[2018-04-01] MEDS ORDERED: ATORVASTATIN CALCIUM 20 MG TABLET PO SCH (21:00)
[2018-04-01] MEDS ORDERED: PRIMIDONE 50 MG PO SCH (21:00)
[2018-04-01] MEDS ORDERED: VERAPAMIL SR 180 MG TABLET.ER. PO SCH (21:00)
== END 2018-04-01 13:26 | disposition home or self-care (01) | DRG 604 ==
LOC: ER 12:17 → 6 SOUTH 14:30
PROVIDERS: ADMIT Internal Medicine; ATTEND Internal Medicine
PROC: 0HQ1XZZ Repair Face Skin, External Approach (ICD-10-PCS; principal; 2018-03-31)
DX: S01.81XA Laceration without foreign body of other part of head, initial encounter (principal); I60.9 Nontraumatic subarachnoid hemorrhage, unspecified; E03.9 Hypothyroidism, unspecified; E78.5 Hyperlipidemia, unspecified; I12.9 Hypertensive chronic kidney disease with stage 1 through stage 4 chronic kidney disease, or unspecified chronic kidney disease; M85.80 Other specified disorders of bone density and structure, unspecified site; N18.9 Chronic kidney disease, unspecified; S80.212A Abrasion, left knee, initial encounter; W01.0XXA Fall on same level from slipping, tripping and stumbling without subsequent striking against object, initial encounter; F32.9 Major depressive disorder, single episode, unspecified; F41.9 Anxiety disorder, unspecified; M19.90 Unspecified osteoarthritis, unspecified site; M48.02 Spinal stenosis, cervical region; Z82.3 Family history of stroke; Z82.49 Family history of ischemic heart disease and other diseases of the circulatory system
CPT/HCPCS: 12013; 36415; 70450; 72125; 80053; 85025; 85610; J3490; 99285-25

== ENCOUNTER 2018-04-05 09:05 | Emergency (ER) | payer BC ==
[~2018-04-05] VITALS: Ht 167.6 cm; Wt 77.1 kg
[~2018-04-05 09:05] MED LIST: ACET500T33 PO; ASPI325T8 PO; CALC600T4 PO; CLON0.25 PO; HYDR-2869 PO; LEVO150T5 PO; LOSA100T7 PO; PRAV80TA2 PO; PRIM50TA PO; SERT50TA8 PO; VERA240C2 PO
[2018-04-05 09:10] VITALS: BP 144/92
--- NOTE | 2018-04-05 09:32 | PHYS DOC ---
Past Medical History Past Medical History: Hypertension, Hypothyroid Additional Past Medical Histor: pinched nerve between 5th/6th vertebrae, stage 3 kidney disease Past Surgical History: Cholecystectomy Additional Past Surgical Histo: hernia repair Alcohol Use: None Drug Use: None Adult General Chief Complaint Chief Complaint: SUTURE/STAPLE REMOVAL HPI HPI 82-year-old female returns to ER for suture removal. Patient reports she was in the ER 09/05/18 following a fall when she was admitted to the hospital for "bleeding in her brain". Patient reports since she was discharged from the hospital she has felt fine denying any vision changes, dizziness, lightheadedness, or headache. Patient denies any unsteady gait. Patient denies having any drainage from suture site at right eyebrow. Review of Systems Review of Systems Constitutional: Denies fever, fatigue/lethargy Eyes: Denies change in visual acuity, redness, or eye pain [] HENT: Denies head/face pain Respiratory: Denies cough or shortness of breath [] Cardiovascular: No additional information not addressed in HPI [] GI: Denies nausea, vomiting Musculoskeletal: Denies neck pain Integument: Reports sutures at healing laceration rt eyebrow with bruising surrounding eye Neurologic: Denies headache, focal weakness or sensory changes. Denies dizziness /lightheadedness All other systems were reviewed and found to be within normal limits, except as documented in this note. Allergies Allergies Allergies Coded Allergies Type Severity Reaction Last Updated Verified No Known Drug Allergies 03/31/18 No Physical Exam Physical Exam Constitutional: Well developed, well nourished, no acute distress, non-toxic appearance.Clear speech. Steady gait HENT: Normocephalic, bruising in healing process surrounding rt eye/orbital area - no swelling/tenderness- well healing laceration w/sutures intact rt eyebrow- no swelling/drainage/bleeding from site, bilateral ears normal, nose normal. [] Eyes: 3mm PERRLA, EOMI, no nystagmus, conjunctiva normal, no discharge. [] Neck: Normal range of motion, no tenderness, supple Cardiovascular:Heart rate regular Lungs & Thorax: Resp. equal/nonlabored Skin: Warm, dry, no erythema, no swelling Back: No tenderness, full ROM Extremities: No tenderness, ROM intact, no edema. [] Neurologic: Alert and oriented X 3, normal motor function, normal sensory function, no focal deficits noted. [] Psychologic: Affect normal, judgement normal, mood normal. [] Current Patient Data Vital Signs Vital Signs Date Time Temp Pulse Resp B/P (MAP) Pulse Ox O2 Delivery O2 Flow Rate FiO2 04/05/18 09:10 97.2 86 16 144/92 (109) 95 Room Air 97.2 EKG EKG [] Radiology/Procedures Radiology/Procedures [] Course & Med Decision Making Course & Med Decision Making Pt had [address] eyebrow lac site with well healing wound. No swelling, drainage/discharge, or tenderness at site. Pt has bruise surrounding rt eye upper/lower in healing process. Pt was A&Ox3 with no focal neuro deficits. Pt denied any vision changes or eye pain. Education provided on home wound care and s&s to return to ER for. Pt has had f/u since her discharge from hospital. Pt was in no distress while in ER. Sutures were easily removed with no bleeding at wound site. Discharge instructions discussed. Dragon Disclaimer Dragon Disclaimer This electronic medical record was generated, in whole or in part, using a voice recognition dictation system. Departure Departure Impression: Primary Impression: Visit for suture removal Disposition: 01 HOME, SELF-CARE Condition: STABLE Referrals: SIHRLEY ROSALES MD (PCP) Patient Instructions: Suture Removal Additional Instructions: Follow-up with your primary doctor/neurology as previously planned. Home wound care as discussed- with any concerns of infection follow-up with primary doctor for wound re-evaluation. REBECCA CHRISTENSEN APRN Apr 05, 2018 09:32
== END 2018-04-05 09:35 | disposition home or self-care (01) ==
LOC: ER 09:05
DX: S01.111D Laceration without foreign body of right eyelid and periocular area, subsequent encounter (principal); E03.9 Hypothyroidism, unspecified; I12.9 Hypertensive chronic kidney disease with stage 1 through stage 4 chronic kidney disease, or unspecified chronic kidney disease; N18.3 Chronic kidney disease, stage 3 (moderate); X58.XXXD Exposure to other specified factors, subsequent encounter
CPT/HCPCS: 99284

== ENCOUNTER → 2018-04-22 | Outpatient (CLI) | payer BC ==
[2018-04-05 09:10] VITALS: BP 144/92
--- NOTE | 2018-04-22 14:56 | KCIC ---
EXAM: Right ankle, 3 views; right tibia and fibula, 2 views. HISTORY: Pain. COMPARISON: None. FINDINGS: 3 views of the right ankle and 2 views of the right tibia and fibula are obtained. There is no acute fracture, dislocation or subluxation. There is no osteochondral lesion. There is a small enthesophyte at the Achilles tendon insertion. There are soft tissue calcifications. There is a small focus of increased sclerosis along the cortex of the lateral distal tibial metadiaphysis. No suspicious sclerotic lesion is seen. There is mild tricompartmental spurring of the knee. IMPRESSION: 1. No acute osseous finding. 2. Small focus sclerosis or increased density within the lateral distal tibial diaphysis. This appears to be cortical based and may be due to a healed fibrous cortical defect or alternative benign lesion. 3. 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 Electronically signed by: Christy Damon MD (04/22/2018 2:51 PM) [id number]
== END | disposition home or self-care (01) ==
LOC: KCIC 10:20
PROVIDERS: ATTEND Nurse Practitioner Family
DX: M17.11 Unilateral primary osteoarthritis, right knee (principal); M76.891 Other specified enthesopathies of right lower limb, excluding foot; M25.571 Pain in right ankle and joints of right foot; I12.9 Hypertensive chronic kidney disease with stage 1 through stage 4 chronic kidney disease, or unspecified chronic kidney disease; N18.3 Chronic kidney disease, stage 3 (moderate); Z82.49 Family history of ischemic heart disease and other diseases of the circulatory system; Z82.3 Family history of stroke
CPT/HCPCS: 73590; 73610

== ENCOUNTER → 2018-06-24 | Outpatient (CLI) | payer BC ==
[~2018-06-24] MED LIST changes: +LOSA100T14 PO; -LOSA100T7 PO
--- NOTE | 2018-06-24 17:29 | KCIC ---
Three-view left knee study Clinical indications: Anterior left knee pain. Several falls the last 3 months. FINDINGS: No acute fracture or dislocation or osteolytic process is evident. Mild joint space narrowing and spurring of the medial tibiofemoral joint compartment is seen. Minimal left knee joint effusion is seen. 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 Electronically signed by: Misbah Short MD (06/24/2018 5:25 PM) [place] [id number]
== END | disposition home or self-care (01) ==
LOC: KCIC 14:55
PROVIDERS: ATTEND Family Medicine
DX: M17.12 Unilateral primary osteoarthritis, left knee (principal); M25.462 Effusion, left knee; M76.892 Other specified enthesopathies of left lower limb, excluding foot; Z91.81 History of falling
CPT/HCPCS: 73562

== ENCOUNTER → 2019-02-17 | Outpatient (CLI) | payer BC ==
--- NOTE | 2019-02-17 13:27 | KCIC ---
MRI Cervical Spine Without Contrast History: Cervical radicular pain, chronic neck pain into the shoulders bilaterally for years Technique: Multiplanar, multi sequential noncontrast MR imaging was performed of the cervical spine. Comparison: March [address] exam, no previous MRI exam available Findings: There is some motion degradation. Cervical cord caliber is within normal limits, no expansile signal change, limited evaluation for subtle signal change due to motion artifact. Some signal change posterior to the cord of the inferior cervical and superior thoracic spine as seen on sagittal images is not reproduced on the axial images and likely due to CSF pulsation artifact. Cervical vertebral body stature is maintained. There is minimal grade 1 anterior spondylolisthesis at C7-T1, negligible posterior subluxation C4 relative to C5. There is [id number] degenerative disc disease C5-6 and to a lesser degree at C6-7, mild disc desiccation more superior levels. There is mild inferior C5 endplate edema more likely reactive/degenerative in etiology. C2-C3: Spinal canal and neural foramina are adequate. There is degree of fusion of the facet articulations bilaterally. C3-C4: Spinal canal is adequate. There is severe facet hypertrophic change bilaterally. There is right uncovertebral degenerative change. There is severe narrowing of the right neural foramen, moderate to severe narrowing on the left primarily from posteriorly by facet. C4-C5: There is severe bilateral facet degenerative change greater on the right. There is negligible disc osteophyte complex. Central canal is adequate about 12 to 13 mm. There is left uncovertebral degenerative change. There is [id number] right and moderate to severe left neural foramina compromise. C5-C6: There is minimal disc osteophyte complex. Central canal is adequate about 12 mm. There is severe bilateral facet hypertrophic change. There is bilateral uncovertebral degenerative change greater on the right. There is moderate to severe right and [id number] left neural foramina compromise. C6-C7: There is a shallow posterior central protrusion about 2 mm AP, central canal adequate about 12 mm. There is fairly severe bilateral facet hypertrophic change. Neural foramina are not significantly narrowed. C7-T1: Spinal canal is adequate. There is severe bilateral facet hypertrophic change. There is mild posterior narrowing of the right neural foramen, left neural foramen not significantly narrowed. Impression: 1. There is multilevel significant facet degenerative change, also some variable uncovertebral degenerative change. Findings contribute to multilevel cervical neural foramina compromise including more significant narrowing bilaterally at C3-C4, on the left at C4-5, and on the right at C5-6, lesser degree of narrowing such as on the right at C4-C5 and on the left at C5-6. There is no significant cervical spinal stenosis. There is mild to moderate degenerative disc disease at C5-6 and to lesser degree at C6-7, minimal spondylosis. Electronically signed by: Arash Varela MD (02/17/2019 1:24 PM) [id number]
== END | disposition home or self-care (01) ==
LOC: KCIC MRI 10:43
PROVIDERS: ATTEND Family Medicine
DX: M50.122 Cervical disc disorder at C5-C6 level with radiculopathy (principal); M43.13 Spondylolisthesis, cervicothoracic region; M48.02 Spinal stenosis, cervical region; G89.29 Other chronic pain; M89.38 Hypertrophy of bone, other site; M53.2X2 Spinal instabilities, cervical region; M25.78 Osteophyte, vertebrae
CPT/HCPCS: 72141

== ENCOUNTER → 2019-05-01 | Outpatient (CLI) | payer BC ==
[~2019-05-01] MED LIST changes: +IOHEXOL 180 MG/ML 10 ML VIAL. ONE; +MULT-55 PO; +methylPREDNISolone ACETATE 40 MG/ML VIAL. ONE; +methylPREDNISolone ACETATE 80 MG/ML VIAL. ONE
--- NOTE | 2019-05-01 13:38 | PAIN ---
DATE OF SERVICE: 05/01/2019 INITIAL CONSULTATION FOR PAIN CLINIC CHIEF COMPLAINT: Neck and bilateral upper extremity pain. HISTORY OF PRESENT ILLNESS: This is an 83-year-old female who presents with history of pain in the base of neck and left greater than right upper extremity for many years. The patient reports she "pinched a nerve" and has had some spinal problems for many years, fell 3 times last year and reports that when the pain increased in the base of the neck and shoulders. She had some treatment in the past with physical therapy as well as exercise treatments, also had some injections in [place] many years ago, about 5-6 years ago, which have helped overall as well. The patient reports it awakens her from sleep at least once a night, does not affect her bowel or bladder control, but does affect her ability to walk at times, she feels she is off balance secondary to increased pain. The patient rates her disability rate from 0-10, 10 being the worst, and is an 8 with family home responsibilities and recreation, 5 with social activity and self-care, and 8 with life support activities. The patient did have an MRI scan of the cervical spine showing C4-C5 severe bilateral facet degenerative change greater on the right with negligible disk osteophyte complex, mild to moderate right and moderate to severe left neural foraminal compromise. C5-C6 shows severe bilateral facet hypertrophic change with moderate to severe right and [id number] left neural foraminal compromise and C6-C7 shows shallow posterior central protrusion about 2 mm with fairly severe bilateral facet hypertrophic change, but neural foramen not significantly narrowed. C7-T1 shows no significant narrowing as well. The patient reports no loss of motor function, but significant fatigability and some spasms in the left shoulder and arm when using her left upper extremity or weightbearing, worse with reaching over her head with both the arms and again awakens up from sleep about once a night. PAST MEDICAL HISTORY: Significant for hypertension, depression, previous cerebral hemorrhage, essential tremors, kidney disease stage 3, and hyperlipidemia. PAST SURGICAL HISTORY: Previous surgery include eye implants in 1993, which is pleased with cataract intraocular lenses, hernia repair, cholecystectomy, stomach surgery in the past, she is unsure of the specifics. CURRENT MEDICATIONS: Include levothyroxine, verapamil, valsartan, hydralazine, primidone, pravastatin, vitamins and daily aspirin. ALLERGIES: The patient is allergic to TYLENOL WITH CODEINE and TRAMADOL. FAMILY HISTORY: Significant for no major medical problems or conditions that she is aware of. SOCIAL HISTORY: The patient does not drink, does not smoke, does not use any illegal, illicit or recreational drugs. She is , lives locally in [place] in [facility], and is retired. REVIEW OF SYSTEMS: The patient's review of systems is positive for those items mentioned in history of present illness. All systems reviewed and otherwise negative. It is complete, full and well documented on the patient's chart. PHYSICAL EXAMINATION: VITAL SIGNS: The patient's blood pressure is 137/71, pulse is 87, respirations 16, temperature is 97.8 degrees Fahrenheit, height is 5 feet 5 inches, and weight is 165 pounds. GENERAL: The patient is awake, alert, oriented, appropriate, very pleasant demeanor. HEENT: Head is normocephalic, atraumatic. Extraocular movements are intact and symmetrical. Oral cavity, mucous membranes moist and pink. Dentition is intact. NECK: Shows anterior throat supple without palpable lymphadenopathy noted. Swallow reflex symmetrical. CHEST: Shows normal on inspection. Breath sounds are clear to auscultation bilaterally. HEART: Shows S1, S2 clear. No murmurs auscultated. ABDOMEN: Soft, nontender, nondistended. No palpable organomegaly is noted. No rebound or guarding demonstrated. BACK: Shows spine grossly in the midline. Some minor flattening of cervical lordotic curvature as well as increased thoracic kyphotic curvature and some minor flattening of lumbar lordotic curvature. Cervical paraspinous muscle shows symmetrical on inspection, with palpation shows some moderate tenderness diffusely bilaterally going diffusely without significant radiation. The patient shows good rotational motion of the cervical spine; however, with good lateral rotation past 45 degrees, closer to 90 degrees without significant pain reported, also full extension and full forward flexion without significant difficulty. EXTREMITIES: The patient's upper extremities show deep tendon reflexes 2+ in the biceps, triceps tendons. Motor exam is approximately 4 on a scale of 5, but equal and symmetrical bilaterally. Peripheral pulses are 2+ radial distribution. Shoulder shrug is strong and intact without loss of strength on resistance, but with some moderate tenderness bilaterally, but worse on the left than the right with resistance. This is true with abduction of shoulder to 90 degrees again with some moderate tenderness on the left greater than right, but without loss of strength on resistance. Peripheral pulses are 2+ radial distribution. Upper extremities are warm and dry to touch, equal in color and appearance. The patient's skin shows warm and dry, good turgor. No edema. No sores, rashes or bruising. IMPRESSION: This is an 83-year-old female with: 1. Several year history of pain in the base of neck and upper extremity, worse over the past year or so, left upper extremity significantly. 2. MRI scan of cervical spine as noted. 3. Hypertension. 4. Hypothyroidism. 5. History of cerebral hemorrhage. PLAN: Options were discussed with the patient including conservative medical management, physical therapy, interventional techniques and she would like to pursue interventional techniques. We discussed a cervical epidural steroid injection using description as well as anatomical models to describe the procedure. Risks were then discussed including, but not limited to bleeding, infection, possibility of epidural hematoma, subsequent neurological compromise, dural puncture, headaches, spinal cord and/or nerve damage, side effects of steroid medication, and poor results regarding pain control. The patient understands and wished to proceed. The patient will return to clinic in approximately 2 weeks for followup. She was counseled on return appointment, activity level and side effects to be aware of. DIAGNOSIS: Cervical radiculopathy with cervical degenerative disk disease. PROCEDURE: Cervical epidural steroid injection, translaminar approach at the C6-C7 level using C-arm fluoroscopic guidance under sterile prep and drape using local anesthetic. MEDICATION INJECTED: The patient received a total of 120 mg of Depo-Medrol plus 5 mL of preservative-free normal saline and 2 mL of contrast. CONDITION AT DISCHARGE: Stable. The patient tolerated the procedure well, had no complications. JOCELIN RAMIREZ MD DR: ERVIN/dia JOB#: [id number] / [id number]
== END ==
LOC: PNCL 08:55
PROVIDERS: ATTEND Anesthesiology
DX: M50.123 Cervical disc disorder at C6-C7 level with radiculopathy (principal); E03.9 Hypothyroidism, unspecified; F32.9 Major depressive disorder, single episode, unspecified; E78.5 Hyperlipidemia, unspecified; I12.9 Hypertensive chronic kidney disease with stage 1 through stage 4 chronic kidney disease, or unspecified chronic kidney disease; N18.3 Chronic kidney disease, stage 3 (moderate); Z90.49 Acquired absence of other specified parts of digestive tract; Z98.890 Other specified postprocedural states; Z88.6 Allergy status to analgesic agent; Z88.5 Allergy status to narcotic agent; Z88.8 Allergy status to other drugs, medicaments and biological substances
CPT/HCPCS: 62321; J1030; J1040; Q9965

== ENCOUNTER → 2019-05-18 | Outpatient (CLI) | payer BC ==
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
== END ==
LOC: PNCL 08:34
PROVIDERS: ATTEND Anesthesiology
DX: M50.123 Cervical disc disorder at C6-C7 level with radiculopathy (principal)
CPT/HCPCS: 62321; J1030; J1040; Q9965

== ENCOUNTER → 2019-07-01 | Outpatient (CLI) | payer BC ==
[~2019-07-01] MED LIST changes: -IOHEXOL 180 MG/ML 10 ML VIAL. ONE; -methylPREDNISolone ACETATE 40 MG/ML VIAL. ONE; -methylPREDNISolone ACETATE 80 MG/ML VIAL. ONE
--- NOTE | 2019-07-01 22:29 | PAIN ---
DATE OF SERVICE: 07/01/2019 DIAGNOSIS: Cervical radiculopathy with cervical degenerative disk disease. HISTORY OF PRESENT ILLNESS: The patient is an 83-year-old female who returns for followup status post cervical epidural steroid injections x 2, most recently 05/18/2019. The patient reports she did well with this, about 75% improvement initially, but when she is up standing and walking, she remembers that the pain in the base of neck and shoulders, most significantly more on the right than the left, but present bilaterally. The patient reports it is worse only when she is on her feet. If she sits down, the pain decreases fairly quickly within a few minutes. She feels better sitting or lying down, does not awaken her from sleep at night. Initially, she was increasing her activity with longer time on her feet with greater tolerance, but now the pain has returned. The patient reports it is a 9 on a scale of 10 at its worst over the past week, 6 on an average and a 3 at its least and is a 6 today. The patient reports it is on and off in intensity, stinging, burning, aching and dull, sharp at times in the upper extremities, mostly in the shoulders and base of the neck. MRI scan was reviewed with her today as well. PHYSICAL EXAMINATION: VITAL SIGNS: The patient's blood pressure is 132/72, pulse 93, respirations are 16, temperature 98.0 degrees Fahrenheit, weight is 165 pounds. GENERAL: The patient is awake, alert, oriented, appropriate, very pleasant demeanor. HEENT: Shows normocephalic, atraumatic. The patient is wearing eyeglasses. Extraocular movements are intact and symmetrical. Oral cavity shows mucous membranes moist and pink. NECK: Shows anterior throat supple without palpable lymphadenopathy noted. Swallow reflex symmetrical. CHEST: Shows normal on inspection. Breath sounds are clear bilaterally. HEART: Shows S1, S2 clear. No murmurs auscultated. ABDOMEN: Soft, nontender, nondistended. No palpable organomegaly is noted. No rebound or guarding demonstrated. BACK: Shows spine grossly in the midline. Cervical paraspinous muscle shows symmetrical on inspection, on palpation shows some mxcb-ns-cijnijxv tenderness in the inferior aspect of the cervical paraspinous muscles and slightly into the superior medial trapezius as well as bilateral trapezius and the upper rhomboid distribution. The patient shows good rotational motion of cervical spine; however, both laterally greater than 45 degrees right and left as well as extension and forward flexion without significant pain reported. EXTREMITIES: Upper extremities show deep tendon reflexes 2+ in the biceps, triceps tendons. Motor exam is approximately 4 on a scale of 5, but equal and symmetrical bilaterally. Peripheral pulses are 2+ radial. No peripheral edema is noted. Options were discussed with the patient. The patient's old chart was reviewed as her current medication regimen updated. Current review of systems updated today as well. She would like to hold on any further injections at this time as she was doing quite a bit better, although the pain is returning. She would like to wait on any further injections. We will honor this and have her return at this time on as needed basis. The patient would like to get through the holidays and perhaps follow up after the first of the year. The patient was encouraged to increase activity as tolerated, maintain stretching and strengthening exercises with the neck and shoulders as well as heat and cold applications were discussed. The patient is also taking some [id number] Tylenol for the pain as well. The patient will follow up at this time on as needed basis. JOCELIN RAMIREZ MD DR: ERVIN/dia JOB#: [id number] / [id number]
== END | disposition home or self-care (01) ==
LOC: PNCL 10:09
PROVIDERS: ATTEND Anesthesiology
DX: M50.10 Cervical disc disorder with radiculopathy, unspecified cervical region (principal); I10 Essential (primary) hypertension; E03.9 Hypothyroidism, unspecified; Z90.49 Acquired absence of other specified parts of digestive tract
CPT/HCPCS: G0463

== ENCOUNTER → 2019-08-20 | Outpatient (CLI) | payer BC ==
[~2019-08-20] MED LIST changes: +IOHEXOL 180 MG/ML 10 ML VIAL. ONE; +methylPREDNISolone ACETATE 40 MG/ML VIAL. ONE; +methylPREDNISolone ACETATE 80 MG/ML VIAL. ONE; +tylenol pm
--- NOTE | 2019-08-20 22:11 | PAIN ---
DATE OF SERVICE: 08/20/2019 PROGRESS NOTE FOR PAIN CLINIC DIAGNOSES: Cervical radiculopathy with cervical degenerative disk disease. HISTORY OF PRESENT ILLNESS: The patient is an 83-year-old female who returns for followup status post cervical epidural steroid injection x 2. The patient is doing very well with her last visit on 07/01/2019 about 75% improved. The patient reports the pain now beginning to return in the base of the neck and shoulders, especially in the left upper extremity. The patient reports it is awakening her from sleep at least once or twice a night and has been more noticeable during the day with repetitive motions with the left arm with reaching or any weightbearing, any repetitive motions. The patient rates her pain as an 8 on a scale of 10 at its worst, 8 on average, 5 at its least and is an 8 today. The patient reports it is aching and dull in the left arm radiating from the neck and the shoulder on to her left side as well. The patient reports no new motor or sensory deficits, no new changes. PHYSICAL EXAMINATION: VITAL SIGNS: The patient's blood pressure 146/79, pulse 73, respirations 18, temperature 98.2 degrees Fahrenheit, weight is 164 pounds. GENERAL: The patient is awake, alert, oriented, appropriate, very pleasant demeanor. HEENT: Head shows normocephalic, atraumatic. Extraocular movements are intact and symmetrical. Oral cavity: Mucous membranes moist and pink. Dentition is intact. NECK: Shows anterior throat supple without palpable lymphadenopathy noted. Swallow reflex symmetrical. CHEST: Shows normal on inspection. Breath sounds are clear bilaterally. HEART: Shows S1, S2 clear. No murmurs auscultated. ABDOMEN: Soft, nontender, nondistended. BACK: Shows spine grossly in the midline. Normal appearing thoracic kyphosis and cervical lordotic curvature. Cervical paraspinous muscle shows symmetrical on inspection, on palpation shows some moderate tenderness diffusely in the low cervical distribution only. The patient has good rotational motion of cervical spine, both laterally as well as extension and flexion without significant increase in pain. EXTREMITIES: The patient's upper extremities show deep tendon reflexes 2+ in the biceps, triceps tendons. Motor exam is approximately 4 on a scale of 5, but equal and symmetrical with warp hanger strength, bicep and tricep flexion. Peripheral pulses are 2+ radial. No peripheral edema is noted bilaterally. Options were discussed with the patient. The patient's old chart was reviewed as her current medication regimen updated. Current review of systems updated today as well. We will proceed with a third in the series of cervical epidural steroid injection today with fluoroscopic guidance. Risks were again discussed including, but not limited to bleeding, infection, possibility of epidural hematoma, subsequent neurological compromise, dural puncture, headaches, spinal cord and/or nerve damage, side effects of steroid medication and poor results regarding pain control. The patient understands and wished to proceed. The patient will return to clinic in approximately 2 weeks for followup. She was counseled on return appointment, activity level and side effects to be aware of. DIAGNOSES: Cervical radiculopathy with cervical degenerative disk disease. PROCEDURE: Cervical epidural steroid injection, translaminar approach C6-C7 level using C-arm fluoroscopic guidance under sterile prep and drape using local anesthetic. MEDICATION INJECTED: A total of 120 mg Depo-Medrol plus 5 mL of preservative-free normal saline and 2 mL of contrast. CONDITION AT DISCHARGE: Stable. The patient tolerated the procedure, had no complications. JOCELIN RAMIREZ MD DR: ERVIN/dia JOB#: [id number] / [id number]
== END | disposition home or self-care (01) ==
LOC: PNCL 11:26
PROVIDERS: ATTEND Anesthesiology
DX: M50.123 Cervical disc disorder at C6-C7 level with radiculopathy (principal); Z98.890 Other specified postprocedural states; Z88.6 Allergy status to analgesic agent
CPT/HCPCS: 62321; J1030; J1040; Q9965

== ENCOUNTER → 2021-05-26 | Outpatient (CLI) | payer BC, MEDICARE ==
[~2021-05-26] MED LIST changes: -CALC600T4 PO; +CALC600T60 PO; -IOHEXOL 180 MG/ML 10 ML VIAL. ONE; -MULT-55 PO; +MULT-684 PO; +SERT-267 PO; -SERT50TA8 PO; -methylPREDNISolone ACETATE 40 MG/ML VIAL. ONE; -methylPREDNISolone ACETATE 80 MG/ML VIAL. ONE
--- NOTE | 2021-05-26 14:49 | KCIC ---
Examination: MRI left shoulder without contrast HISTORY: History of left shoulder pain, weakness, fall COMPARISON: None available TECHNIQUE: Multiplanar multisequence MR imaging of the left shoulder without contrast. FINDINGS: The long head of the biceps tendon within the bicipital groove. The attachment of the long head the b iceps tendon to the superior labral anchor grossly appears intact. The attachment of the subscapulari s tendon moderate increased signal identified in the supraspinatus, infraspinatus tendon likely tendi nosis. Severe joint space loss identified in the region, acromioclavicular joint. Mild subchondral cy stic changes identified in the glenoid likely degenerative changes with large osteophyte formation id entified in the inferior humerus head. There is complete cartilage loss identified in the glenohumera l joint. Moderate shoulder joint effusion. IMPRESSION: 1. Moderate tendinosis of the rotator cuff. 2. Severe degenerative changes glenohumeral joint, acromioclavicular joint. 3. Moderate shoulder joint effusion. Electronically signed by: Romario Olmos MD (05/26/2021 2:47 PM) [id number]
== END ==
LOC: KCIC MRI 13:02
PROVIDERS: ATTEND Family Medicine
DX: M19.012 Primary osteoarthritis, left shoulder (principal); M25.412 Effusion, left shoulder; M25.812 Other specified joint disorders, left shoulder; R29.898 Other symptoms and signs involving the musculoskeletal system
CPT/HCPCS: 73221